=== PATIENT | female | born 1985 | race Caucasian/White ===

== ENCOUNTER 2018-09-25 18:00 | Emergency (ER) | payer OTHER ==
[~2018-09-25] VITALS: Ht 165.1 cm; Wt 81.6 kg
[2018-09-25 18:08] VITALS: BP 129/83
--- NOTE | 2018-09-25 18:19 | NUR ---
PT AMBULATED TO ER BED 9
--- NOTE | 2018-09-25 18:23 | NUR ---
COLD COMPRESS HANDED TO PT TO APPLY WHERE IT ITCHES THE MOST FOR RELIEF.
--- NOTE | 2018-09-25 18:26 | NUR ---
C/O BUG BITES WITH MODERATE PRURITUS X 3 DAYS----PT STATES OVER THE COUNTER BENADRYL AND HYDROCORTISONE INEFFECTIVE.
--- NOTE | 2018-09-25 19:00 | NUR ---
ASSUMED CARE OF PT FROM IVON RANDY.
[2018-09-25 19:50] VITALS: BP 129/83
--- NOTE | 2018-09-25 19:51 | NUR ---
Patient discharged with v/s stable. Written and verbal after care instructions given and explained. Patient alert, oriented and verbalized understanding of instructions. Ambulatory with steady gait. All questions addressed prior to discharge. ID band removed. Patient advised to follow up with PMD. Rx of BENEDRYL, TRIAMICLONE given. Patient educated on indication of medication including possible reaction and side effects. Opportunity to ask questions provided and answered.
== END 2018-09-25 19:50 | disposition home or self-care (01) ==
LOC: MED 18:00
DX: S40.862A Insect bite (nonvenomous) of left upper arm, initial encounter (principal); S40.861A Insect bite (nonvenomous) of right upper arm, initial encounter; S80.862A Insect bite (nonvenomous), left lower leg, initial encounter; S80.861A Insect bite (nonvenomous), right lower leg, initial encounter; Z88.8 Allergy status to other drugs, medicaments and biological substances; W57.XXXA Bitten or stung by nonvenomous insect and other nonvenomous arthropods, initial encounter; Y93.89 Activity, other specified; Y92.89 Other specified places as the place of occurrence of the external cause; Y99.8 Other external cause status
CPT/HCPCS: 99283

== ENCOUNTER 2018-09-27 16:15 | Emergency (ER) | payer OTHER ==
[~2018-09-27] VITALS: Ht 167.6 cm; Wt 81.6 kg
[2018-09-27 16:20] VITALS: BP 137/78
[2018-09-27] MEDS ORDERED: BEN50 PO (16:25)
--- NOTE | 2018-09-27 17:29 | NUR ---
C/O WORSENING GENERALIZED RASH WITH PRURITUS
[2018-09-27] MEDS ORDERED: predniSONE 20 MG TAB PO ONE (17:50)
--- NOTE | 2018-09-27 18:47 | NUR ---
Patient discharged with v/s stable. Written and verbal after care instructions given and explained. Patient alert, oriented and verbalized understanding of instructions. Ambulatory with steady gait. All questions addressed prior to discharge. ID band removed. Patient advised to follow up with PMD. Rx of keflex/permethrin/prednisone given. Patient educated on indication of medication including possible reaction and side effects. Opportunity to ask questions provided and answered.
[2018-09-27 18:48] VITALS: BP 125/73
== END 2018-09-27 18:47 | disposition home or self-care (01) ==
LOC: MED 16:15
DX: S40.862A Insect bite (nonvenomous) of left upper arm, initial encounter (principal); S40.861A Insect bite (nonvenomous) of right upper arm, initial encounter; S80.862A Insect bite (nonvenomous), left lower leg, initial encounter; S80.861A Insect bite (nonvenomous), right lower leg, initial encounter; Z79.899 Other long term (current) drug therapy; Z79.52 Long term (current) use of systemic steroids; W57.XXXA Bitten or stung by nonvenomous insect and other nonvenomous arthropods, initial encounter; Y93.89 Activity, other specified; Y92.89 Other specified places as the place of occurrence of the external cause; Y99.8 Other external cause status
CPT/HCPCS: 99283; J7512

== ENCOUNTER 2018-10-03 16:29 | Emergency (ER) | payer OTHER ==
[~2018-10-03] VITALS: Ht 170.2 cm; Wt 81.6 kg
[~2018-10-03 16:29] MED LIST: BEN50 PO
--- NOTE | 2018-10-03 16:31 | NUR ---
PATIENT AMBULATED TO BED 8
[2018-10-03 16:34] VITALS: BP 154/69
--- NOTE | 2018-10-03 16:40 | NUR ---
33/F BIB SELF C/O RASH X 1 WEEKS. PT STATES SHE WAS SEEN LAST WEEK FOR BED BUGS, GIVEN ABX AND PREDNISONE, PREDNISONE COMPLETED YESTERDAY, PT STATES RASH IS WORSENING AND MAY BE IN HER CAR. PATIENT STATES PAIN OF 7/10 AT THIS TIME. PATIENT POSITIONED FOR COMFORT; HOB ELEVATED; BEDRAILS UP X1; BED DOWN. ER MD MADE AWARE OF PT STATUS.
[2018-10-03 17:14] VITALS: BP 154/69
--- NOTE | 2018-10-03 17:14 | NUR ---
Patient discharged with v/s stable. Written and verbal after care instructions given and explained. Patient alert, oriented and verbalized understanding of instructions. Ambulatory with steady gait. All questions addressed prior to discharge. ID band removed. Patient advised to follow up with PMD. Rx of PREDNISONE, ATARAX& PERMETHRIN given. Patient educated on indication of medication including possible reaction and side effects. Opportunity to ask questions provided and answered.
== END 2018-10-03 17:14 | disposition home or self-care (01) ==
LOC: MED 16:29
DX: T63.481A Toxic effect of venom of other arthropod, accidental (unintentional), initial encounter (principal); Z79.899 Other long term (current) drug therapy; Z88.8 Allergy status to other drugs, medicaments and biological substances; Y92.89 Other specified places as the place of occurrence of the external cause
CPT/HCPCS: 99283

== ENCOUNTER 2019-03-30 17:32 | Emergency (ER) | payer SELFPAY ==
[~2019-03-30] VITALS: Ht 165.1 cm; Wt 81.6 kg
[2019-03-30 17:49] VITALS: BP 139/65
--- NOTE | 2019-03-30 17:52 | NUR ---
TRIAGE COMPLETE. VSS. RETURNED TO LOBBY WITH PARENT TO WAIT FOR BED IN ED.
[2019-03-30] MEDS ORDERED: ACETAMINOPHEN EXTRA STRENGTH 500 MG TAB PO ONE (17:55)
--- NOTE | 2019-03-30 19:10 | NUR ---
PT TO ER BED 10
--- NOTE | 2019-03-30 19:33 | NUR ---
33 YO F BIB SELF PRESENTS TO ED C/O FEVER 103 WITH 10/10 TEPORAL MARROQUIN STARTED LAST NIGHT. MEDICATED WITH TYLENOL, TEMPORARY RELIEF. WET, PRODUCTIVE COUGH X 1 WEEK WITH GREEN PHLEGHM. LUNGS CTA. DENIES SORE THROAT. REPORTS VOMITING WITH COUGHING HARD. DENIES NAUSEA, ABD PAIN AT THIS TIME. NASAL CONGESTION HEARD. NO S/SX RESP DISTRESS. RX-- MUCINEX, LITTLE RELIEF. TYLENOL @ TRIAGE.
--- NOTE | 2019-03-30 19:38 | NUR ---
DR. SEVERO PATEL AT BEDSIDE.
[2019-03-30] MEDS ORDERED: PROMETH/CODEINE 6.25-10MG/5ML 5 ML UDC PO ONE (19:45)
[2019-03-30] MEDS ORDERED: IBUPROFEN 800 MG TAB PO ONE (19:45)
--- NOTE | 2019-03-30 20:03 | NUR ---
FLU SWAB COLLECTED.
--- NOTE | 2019-03-30 20:51 | NUR ---
ORAL TEMP 98.5. PT STATES MARROQUIN FEELS MUCH BETTER. REPORTS PAIN RELIEF; 06/29. TYLENOL AND MOTRIN EFFECTIVE FOR PAIN AND FEVER RELIEF.
--- NOTE | 2019-03-30 21:59 | NUR ---
LAB STATES THEY NEVER RECEIVED OR COLLECTED THIS PT'S FLU SWAB. DR. ELKINS MADE AWARE. NEW SWAB COLLECTED AND WALKED TO LAB BY RANDY RAJAN.
--- NOTE | 2019-03-30 22:20 | NUR ---
FLU A +. DR. ELKINS NOTIFIED.
[2019-03-30 22:30] VITALS: BP 109/65
--- NOTE | 2019-03-30 22:30 | NUR ---
Patient discharged with v/s stable. Written and verbal after care instructions given and explained. Patient alert, oriented and verbalized understanding of instructions. Ambulatory with steady gait. All questions addressed prior to discharge. ID band removed. Patient advised to follow up with PMD. Rx of Promethazine Hcl with Codein and Tamiflu given. Patient educated on indication of medication including possible reaction and side effects. Opportunity to ask questions provided and answered.
== END 2019-03-30 22:30 | disposition home or self-care (01) ==
LOC: MED 17:32
DX: J10.1 Influenza due to other identified influenza virus with other respiratory manifestations (principal); R51 Headache; Z71.6 Tobacco abuse counseling; Z88.8 Allergy status to other drugs, medicaments and biological substances
CPT/HCPCS: 87804; 99284